=== PATIENT | male | born 1955 | race Caucasian/White ===

== ENCOUNTER 2019-04-03 15:07 | Inpatient (IN) ==
[2019-04-03 16:20] LABS: Basophils % 0.1 % (0.0-0.8); Eosinophils % 0.2 % (0.00-10.9); Hematocrit 48.5 VOL% (42.0-52.0); Immature Granulocytes % 0.5 %; Immature Granulocytes Absolute 0.06 #; Lymphocytes # 0.8 10*3/uL (1.4-4.0); Lymphocytes % 6.6 % (21.2-54.2); Mean Corpuscular HGB Conc 35.1 GM/DL (32-36); Mean Corpuscular Volume 87.9 FL (87-102); Monocytes % 5.6 % (1.7-12.7); Platelet Count 188 T/CUMM (130-400); Red Blood Count 5.52 MC/CUMM (3.8-5.5); Red Cell Distribution Width 14.5 % (9.3-17.3); White Blood Count 12.2 T/CUMM (4-12)
[2019-04-03] MEDS ORDERED: SODIUM CHLORIDE 0.9% 1,000 ML IV STA (16:30)
[2019-04-03] MEDS ORDERED: ONDANSETRON 4 MG/2 ML VIAL IV STA (16:30)
[2019-04-03] MEDS ORDERED: PANTOPRAZOLE 40 MG VIAL IV STA (16:30)
[2019-04-03] MEDS ORDERED: METOCLOPRAMIDE 10 MG/2 ML VIAL IV STA (16:33)
[2019-04-03 16:36] LABS: Albumin 3.6 G/DL (3.4-5.0); Bilirubin,Total 0.9 MG/DL (0.2-1.0); Calcium 9.1 MG/DL (8.5-10.1); Osmolality,Calculated 278.7 MOS/KG (273-304); Total Protein 6.7 G/DL (6.4-8.3)
[2019-04-03 17:14] LABS: Amylase 40 U/L (25-115); Troponin I < 0.015 NG/ML (0.00-0.045)
[2019-04-03] MEDS ORDERED: cefTRIAXone 2,000 MG in SODIUM CHLORIDE 0.9% 100 ML IV ONE (17:47)
[2019-04-03] MEDS ORDERED: metroNIDAZOLE INJ 500 MG in PREMIX 1 EACH IV STA (17:48)
[2019-04-03] MEDS ORDERED: cefTRIAXone 1,000 MG VIAL ONE (18:30)
[2019-04-03] MEDS ORDERED: MAGNESIUM SULF RIDER 2 GM in PREMIX 1 EACH IV PRN (19:08)
[2019-04-03] MEDS ORDERED: MAGNESIUM SULF RIDER 4 GM in PREMIX 1 EACH IV PRN (19:08)
[2019-04-03] MEDS ORDERED: MEPERIDINE 25 MG/1 ML VIAL IV PRN (19:08)
[2019-04-03 19:12] LABS: Apearance,Urine Slightly Hazy (Clear); Bilirubin,Urine Negative (Negative); Blood, Urine Negative (Negative); Glucose,Urine (UA) Negative (Negative); Ketones,Urine 20 mg/dL (Negative); Mucus,Urine Many /LPF (Occasional); Nitrite,Urine Negative (Negative); Protein,Urine 30 MG/DL; RBC,Urine 2 /HPF (0-4); Squamous Epithelial Cell,Urine Occasional /HPF (0-10); Urine Specific Gravity 1.035 (1.001-1.035); WBC,Urine 3 /HPF (0-6)
[2019-04-03 19:13] LABS: Urine Color Dark yellow (Yellow)
[2019-04-03] MEDS: CIPROFLOXACIN INJ 400 MG in PREMIX 1 EACH IV SCH (22:12)
[2019-04-03] MEDS: SODIUM CHLOR 0.45% KCL 20 MEQ 20 MEQ/1,000 ML BAG IV SCH (22:12)
[2019-04-03] MEDS: ZALEPLON 5 MG CAPSULE PO PRN (22:15)
[2019-04-03] MEDS: ONDANSETRON 4 MG/2 ML VIAL IV PRN (22:19)
[2019-04-04] MEDS: PROMETHAZINE 25 MG/1 ML VIAL IM PRN (00:49)
[2019-04-04] MEDS: metroNIDAZOLE INJ 500 MG in PREMIX 1 EACH IV SCH ×4 (00:52→21:16)
[2019-04-04] MEDS: SODIUM CHLOR 0.45% KCL 20 MEQ 20 MEQ/1,000 ML BAG IV SCH ×3 (04:30→21:17)
[2019-04-04 05:44] LABS: Basophils % 0.1 % (0.0-0.8); Eosinophils % 0.2 % (0.00-10.9); Hematocrit 44.3 VOL% (42.0-52.0); Hemoglobin 15.5 GM/DL (14.0-18.0); Immature Granulocytes % 0.5 %; Immature Granulocytes Absolute 0.07 #; Lymphocytes # 1.3 10*3/uL (1.4-4.0); Lymphocytes % 9.1 % (21.2-54.2); Mean Corpuscular Volume 88.4 FL (87-102); Mean Platelet Volume 11.3 FL (9.6-12.0); Monocytes % 7.7 % (1.7-12.7); Neutrophils % 82.4 % (38.7-73.9); Platelet Count 173 T/CUMM (130-400); Red Blood Count 5.01 MC/CUMM (3.8-5.5); Red Cell Distribution Width 14.3 % (9.3-17.3)
[2019-04-04 05:49] LABS: Calcium 8.9 MG/DL (8.5-10.1); Osmolality,Calculated 278.7 MOS/KG (273-304)
[2019-04-04] MEDS: CIPROFLOXACIN INJ 400 MG in PREMIX 1 EACH IV SCH ×2 (08:30→23:37)
[2019-04-04] MEDS ORDERED: PANTOPRAZOLE 40 MG VIAL IV SCH (09:00)
[2019-04-04] MEDS: ONDANSETRON 4 MG/2 ML VIAL IV PRN (17:42)
[2019-04-04] MEDS: MORPHINE 4 MG/1 ML VIAL IV PRN (21:16)
[2019-04-05] MEDS: ONDANSETRON 4 MG/2 ML VIAL IV PRN ×3 (00:41→16:19)
[2019-04-05] MEDS: metroNIDAZOLE INJ 500 MG in PREMIX 1 EACH IV SCH ×4 (00:42→20:40)
[2019-04-05] MEDS: SODIUM CHLOR 0.45% KCL 20 MEQ 20 MEQ/1,000 ML BAG IV SCH ×2 (05:20→16:16)
[2019-04-05] MEDS: POLYETHYLENE GLYCOL POWDER 17 GM PACK PO SCH (09:43)
[2019-04-05] MEDS: PANTOPRAZOLE 40 MG TABLET PO SCH (09:43)
[2019-04-05 10:39] LABS: Basophils % 0.1 % (0.0-0.8); Eosinophils # 0.1 10*3/uL (0.0-0.87); Eosinophils % 0.7 % (0.00-10.9); Hematocrit 44.2 VOL% (42.0-52.0); Hemoglobin 15.4 GM/DL (14.0-18.0); Immature Granulocytes % 0.5 %; Immature Granulocytes Absolute 0.05 #; Lymphocytes % 8.9 % (21.2-54.2); Mean Corpuscular HGB Conc 34.8 GM/DL (32-36); Mean Corpuscular Volume 88.6 FL (87-102); Mean Platelet Volume 10.9 FL (9.6-12.0); Monocytes % 6.6 % (1.7-12.7); Neutrophils % 83.2 % (38.7-73.9); Platelet Count 135 T/CUMM (130-400); Red Blood Count 4.99 MC/CUMM (3.8-5.5); Red Cell Distribution Width 14.3 % (9.3-17.3); White Blood Count 10.7 T/CUMM (4-12)
[2019-04-05] MEDS: CIPROFLOXACIN INJ 400 MG in PREMIX 1 EACH IV SCH ×2 (10:39→20:52)
[2019-04-05 11:03] LABS: Calcium 8.7 MG/DL (8.5-10.1); Osmolality,Calculated 270.1 MOS/KG (273-304)
[2019-04-05 11:26] LABS: Albumin 3.1 G/DL (3.4-5.0); Bilirubin,Direct 0.33 MG/DL (0.0-0.20); Bilirubin,Indirect 0.4 MG/DL (0.0-1.0); Bilirubin,Total 0.7 MG/DL (0.2-1.0); Total Protein 5.2 G/DL (6.4-8.3)
[2019-04-05] MEDS: PROMETHAZINE 25 MG/1 ML VIAL IM PRN (13:54)
[2019-04-05] MEDS ORDERED: LACTATED RINGERS 1,000 ML IV SCH (14:30)
[2019-04-05] MEDS ORDERED: cefOXitin 2,000 MG in SYRINGE 1 EACH IV ONE (15:48)
[2019-04-05] MEDS: MORPHINE 4 MG/1 ML VIAL IV PRN (16:16)
[2019-04-05] MEDS ORDERED: PROMETHAZINE INJ 25 MG in SODIUM CHLORIDE 0.9% 50 ML IV PRN (16:22)
[2019-04-05] MEDS ORDERED: ONDANSETRON 4 MG/2 ML VIAL IV PRN (16:22)
[2019-04-05] MEDS ORDERED: diphenhydrAMINE 50 MG/1 ML VIAL IV PRN (16:22)
[2019-04-05] MEDS ORDERED: MEPERIDINE 25 MG/1 ML VIAL IV PRN (16:22)
[2019-04-05] MEDS ORDERED: BUPIVACAINE MPF 0.5% /EPI 30 ML VIAL ONE (16:40)
[2019-04-05] MEDS ORDERED: SCOPOLAMINE 1.5 MG PATCH TRANSDERM ONE (16:41)
[2019-04-05] MEDS ORDERED: PROMETHAZINE 25 MG/1 ML VIAL ONE ×2 (16:41→18:21)
[2019-04-05] MEDS ORDERED: DEXAMETHASONE 4 MG/1 ML VIAL ONE (16:41)
[2019-04-05] MEDS ORDERED: ONDANSETRON 4 MG/2 ML VIAL ONE ×2 (16:41→18:21)
[2019-04-05] MEDS ORDERED: ALBUMIN 5% 12.5 GM/250 ML VIAL IV ONE (17:19)
[2019-04-05] MEDS ORDERED: SUGAMMADEX 200 MG/2 ML VIAL IV ONE (17:46)
[2019-04-05] MEDS ORDERED: MEPERIDINE 25 MG/1 ML VIAL ONE (18:21)
[2019-04-05] MEDS ORDERED: LIDOCAINE 2% 5 ML VIAL ONE (18:54)
[2019-04-05] MEDS ORDERED: MIDAZOLAM 2 MG/2 ML VIAL ONE (18:54)
[2019-04-05] MEDS ORDERED: PROPOFOL 200 MG/20 ML VIAL IV ONE (18:54)
[2019-04-05] MEDS ORDERED: SEVOFLURANE 1 UNIT/15 MINUTE INH ONE (18:54)
[2019-04-05] MEDS ORDERED: ETOMIDATE 40 MG/20 ML VIAL IV ONE (18:55)
[2019-04-05] MEDS ORDERED: fentaNYL 100 MCG/2 ML VIAL ONE (18:55)
[2019-04-05] MEDS ORDERED: ROCURONIUM 100 MG/10 ML VIAL IV ONE (18:55)
[2019-04-05] MEDS ORDERED: LACTATED RINGERS 1,000 ML IV ONE (18:55)
[2019-04-05] MEDS ORDERED: PROMETHAZINE INJ 12.5 MG in SODIUM CHLORIDE 0.9% 50 ML IV PRN (18:56)
[2019-04-05 19:38] LABS: Basophils % 0.2 % (0.0-0.8); Eosinophils % 0.1 % (0.00-10.9); Hematocrit 45.4 VOL% (42.0-52.0); Hemoglobin 15.7 GM/DL (14.0-18.0); Immature Granulocytes % 0.5 %; Immature Granulocytes Absolute 0.09 #; Lymphocytes # 0.3 10*3/uL (1.4-4.0); Mean Corpuscular HGB Conc 34.6 GM/DL (32-36); Mean Corpuscular Volume 89.5 FL (87-102); Mean Platelet Volume 11.1 FL (9.6-12.0); Monocytes % 2.6 % (1.7-12.7); Neutrophils % 94.6 % (38.7-73.9); Platelet Count 177 T/CUMM (130-400); Red Blood Count 5.07 MC/CUMM (3.8-5.5); Red Cell Distribution Width 14.4 % (9.3-17.3); White Blood Count 17.1 T/CUMM (4-12)
[2019-04-05 19:44] LABS: Calcium 8.6 MG/DL (8.5-10.1); Osmolality,Calculated 276.1 MOS/KG (273-304)
[2019-04-05 20:16] LABS: Band Neutrophils 2 % (0-10); Segmented Neutrophils 96 % (50-85); Total Cells Counted 100
[2019-04-05 20:17] LABS: Giant Platelets Few; Platelet Estimate Adequate
[2019-04-05] MEDS: HYDROmorphone 2 MG/1 ML VIAL IV PRN (20:47)
[2019-04-06] MEDS: metroNIDAZOLE INJ 500 MG in PREMIX 1 EACH IV SCH ×4 (01:27→20:36)
[2019-04-06] MEDS: SODIUM CHLOR 0.45% KCL 20 MEQ 20 MEQ/1,000 ML BAG IV SCH ×2 (03:32→04:51)
[2019-04-06 06:20] LABS: Basophils % 0.1 % (0.0-0.8); Hematocrit 44.4 VOL% (42.0-52.0); Hemoglobin 15.8 GM/DL (14.0-18.0); Immature Granulocytes % 0.3 %; Immature Granulocytes Absolute 0.04 #; Lymphocytes # 0.5 10*3/uL (1.4-4.0); Lymphocytes % 3.4 % (21.2-54.2); Mean Corpuscular HGB Conc 35.6 GM/DL (32-36); Mean Corpuscular Volume 87.4 FL (87-102); Mean Platelet Volume 11.2 FL (9.6-12.0); Monocytes % 6.7 % (1.7-12.7); Neutrophils % 89.5 % (38.7-73.9); Platelet Count 141 T/CUMM (130-400); Red Blood Count 5.08 MC/CUMM (3.8-5.5); Red Cell Distribution Width 14.1 % (9.3-17.3); White Blood Count 14.8 T/CUMM (4-12)
[2019-04-06 06:44] LABS: Calcium 8.8 MG/DL (8.5-10.1); Osmolality,Calculated 272.1 MOS/KG (273-304)
[2019-04-06 07:47] LABS: Basophils % 0.1 % (0.0-0.8); Hemoglobin 15.6 GM/DL (14.0-18.0); Immature Granulocytes % 0.4 %; Immature Granulocytes Absolute 0.07 #; Lymphocytes # 0.6 10*3/uL (1.4-4.0); Lymphocytes % 3.8 % (21.2-54.2); Mean Corpuscular HGB Conc 35.5 GM/DL (32-36); Mean Corpuscular Volume 87.5 FL (87-102); Mean Platelet Volume 10.9 FL (9.6-12.0); Monocytes % 7.3 % (1.7-12.7); Neutrophils % 88.4 % (38.7-73.9); Platelet Count 138 T/CUMM (130-400); Red Blood Count 5.03 MC/CUMM (3.8-5.5); Red Cell Distribution Width 14.3 % (9.3-17.3); White Blood Count 15.7 T/CUMM (4-12)
[2019-04-06 08:08] LABS: Calcium 8.5 MG/DL (8.5-10.1); Osmolality,Calculated 271.1 MOS/KG (273-304)
[2019-04-06 08:09] LABS: Band Neutrophils 19 % (0-10); Lymphocytes 6 % (20-55); Platelet Estimate Adequate; Segmented Neutrophils 70 % (50-85); Total Cells Counted 100
[2019-04-06 08:19] LABS: Band Neutrophils 21 % (0-10); Lymphocytes 3 % (20-55); Platelet Estimate Adequate; Segmented Neutrophils 72 % (50-85); Total Cells Counted 100
[2019-04-06 08:20] LABS: Anisocytosis Slight
[2019-04-06 08:21] LABS: Macrocytosis Slight
[2019-04-06] MEDS: POLYETHYLENE GLYCOL POWDER 17 GM PACK PO SCH (09:36)
[2019-04-06] MEDS: PANTOPRAZOLE 40 MG TABLET PO SCH (09:36)
[2019-04-06] MEDS: CIPROFLOXACIN INJ 400 MG in PREMIX 1 EACH IV SCH ×2 (09:38→22:01)
[2019-04-06] MEDS: ONDANSETRON 4 MG/2 ML VIAL IV PRN ×2 (10:14→13:59)
[2019-04-06] MEDS ORDERED: CELECOXIB 200 MG CAPSULE PO PRN (10:52)
[2019-04-06] MEDS: SODIUM CHLORIDE 0.9% 1,000 ML IV SCH (13:56)
[2019-04-06] MEDS: HYDROmorphone 2 MG/1 ML VIAL IV PRN (20:36)
[2019-04-06] MEDS: ZALEPLON 5 MG CAPSULE PO PRN (20:36)
[2019-04-07] MEDS: metroNIDAZOLE INJ 500 MG in PREMIX 1 EACH IV SCH ×3 (01:10→12:35)
[2019-04-07] MEDS: HYDROmorphone 2 MG/1 ML VIAL IV PRN (02:43)
[2019-04-07] MEDS: SODIUM CHLORIDE 0.9% 1,000 ML IV SCH (05:32)
[2019-04-07 05:44] LABS: Basophils % 0.1 % (0.0-0.8); Eosinophils # 0.1 10*3/uL (0.0-0.87); Eosinophils % 1.1 % (0.00-10.9); Hematocrit 44.7 VOL% (42.0-52.0); Hemoglobin 15.7 GM/DL (14.0-18.0); Immature Granulocytes % 0.5 %; Immature Granulocytes Absolute 0.06 #; Lymphocytes # 1.1 10*3/uL (1.4-4.0); Lymphocytes % 9.8 % (21.2-54.2); Mean Corpuscular HGB Conc 35.1 GM/DL (32-36); Mean Corpuscular Volume 89.2 FL (87-102); Mean Platelet Volume 11.1 FL (9.6-12.0); Neutrophils % 79.5 % (38.7-73.9); Platelet Count 115 T/CUMM (130-400); Red Blood Count 5.01 MC/CUMM (3.8-5.5); Red Cell Distribution Width 14.5 % (9.3-17.3); White Blood Count 11.4 T/CUMM (4-12)
[2019-04-07 06:01] LABS: Calcium 8.4 MG/DL (8.5-10.1)
[2019-04-07] MEDS: POLYETHYLENE GLYCOL POWDER 17 GM PACK PO SCH (09:24)
[2019-04-07] MEDS: PANTOPRAZOLE 40 MG TABLET PO SCH (09:24)
[2019-04-07] MEDS: CIPROFLOXACIN INJ 400 MG in PREMIX 1 EACH IV SCH (10:23)
[2019-04-07] MEDS ORDERED: POLYETHYLENE GLYCOL POWDER 17 GM PACK PO SCH (12:00)
[2019-04-07] MEDS ORDERED: DOCUSATE SODIUM 100 MG CAPSULE PO SCH (12:00)
[2019-04-07 12:27] VITALS: BP 121/83
[2019-04-07] MEDS ORDERED: LACTULOSE 20 GM/30 ML UDCUP PO SCH (14:00)
[2019-04-07] MEDS ORDERED: LIPASE/PROTEASE/AMYLASE 4,200 UNITS CAPSULE PO SCH (17:00)
== END 2019-04-07 14:52 | disposition hospice, home (50) | DRG 231 ==
LOC: N.ED 15:07 → N.EDINP 19:11 → SUATTDRO 19:11 → N.5E 19:29
PROVIDERS: ADMIT Family Medicine; ATTEND Hospitalist